=== PATIENT | female | born 1985 | race Caucasian/White ===

== ENCOUNTER 2020-06-27 01:21 | Emergency (ER) | payer MEDICAID ==
[~2020-06-27] VITALS: Ht 162.6 cm; Wt 115.0 kg
[2020-06-27 01:25] VITALS: BP 148/102
[2020-06-27] MEDS ORDERED: TETanus/Pertussis (Acell)/Diphther VAC/PF (Tdap-Adult) 0.5ml syringe IMVAC ONE (02:05)
[2020-06-27] MEDS ORDERED: LIDOcaine 1% W/epiNEPHrine 1:200,000 10ml vial IJ ONE (02:05)
[2020-06-27] MEDS ORDERED: bacitracin 15gm ointment TP ONE (03:35)
== END 2020-06-27 03:56 | disposition home or self-care (01) ==
LOC: ER 01:22
DX: S61.411A Laceration without foreign body of right hand, initial encounter (principal); I10 Essential (primary) hypertension; F41.9 Anxiety disorder, unspecified; F32.9 Major depressive disorder, single episode, unspecified; F17.200 Nicotine dependence, unspecified, uncomplicated; Z72.89 Other problems related to lifestyle; W25.XXXA Contact with sharp glass, initial encounter; Y93.89 Activity, other specified; Y92.89 Other specified places as the place of occurrence of the external cause; Y99.8 Other external cause status
CPT/HCPCS: 12002; 73120; 90471; 90715; 99283